=== PATIENT | female | born 1995 | race American Indian/Alaskan Native ===

== ENCOUNTER 2022-02-16 14:07 | Emergency (ER) | payer SELFPAY ==
--- NOTE | 2022-02-16 16:16 | Emergency Department Report ---
ED Eye Problem HPI - General Chief complaint: Eye Problems Stated complaint: EYE SWOLLEN Time Seen by Provider: 02/16/22 16:12 Source: patient Mode of arrival: Ambulatory Limitations: No Limitations - History of Present Illness Initial comments: Patient is a 26-year-old female that comes in with right eye swelling and pain. She has a stye on her right eye. No trauma. No contacts. Vision is unchanged. Patient is ambulatory, nontoxic [id number]. She has no chills or fever. She denies any headache. She is in her otherwise usual state of health. -: Gradual, days(s) Location: right eye Place: home If Injury: none Eye Symptoms: foreign body sensation Consistency: constant Associated Symptoms: none Treatments Prior to Arrival: none - Related Data Previous Rx's Medication Instructions Recorded Last Taken Type Amoxicillin [Trimox CAP] 500 mg PO BID #20 capsule 02/16/22 Unknown Rx Erythromycin [Erythromycin Ophth 0.5 inch OD Q4H #1 tube 02/16/22 Unknown Rx Oint] Allergies Allergy/AdvReac Type Severity Reaction Status Date / Time No Known Allergies Allergy Unverified 02/16/22 14:42 ED Review of Systems ROS: Stated complaint: EYE SWOLLEN Other details as noted in HPI Comment: All other systems reviewed and negative ED Past Medical Hx - Past Medical History Previous Medical History?: No - Surgical History Past Surgical History?: No - Family History Family history: no significant - Social History Smoking Status: Never Smoker Substance Use Type: Alcohol - Medications Home Medications: Home Medications Medication Instructions Recorded Confirmed Last Taken Type Amoxicillin [Trimox CAP] 500 mg PO BID #20 capsule 02/16/22 Unknown Rx Erythromycin [Erythromycin Ophth 0.5 inch OD Q4H #1 tube 02/16/22 Unknown Rx Oint] ED Physical Exam - General Limitations: No Limitations General appearance: alert, in no apparent distress - Head Head exam: Present: atraumatic, normocephalic - Eye Eye exam: Present: normal appearance, PERRL, EOMI - Expanded Eye Exam Expanded Eyelids: Stye: Right, Erythema: Right, Swelling: Right Pupils: Regular, Round: Bilateral - ENT ENT exam: Present: mucous membranes moist - Neck Neck exam: Present: normal inspection - Respiratory Respiratory exam: Present: normal lung sounds bilaterally. Absent: respiratory distress - Cardiovascular Cardiovascular Exam: Present: regular rate, normal rhythm. Absent: systolic murmur, diastolic murmur, rubs, gallop - GI/Abdominal GI/Abdominal exam: Present: soft, normal bowel sounds - Extremities Exam Extremities exam: Present: normal inspection - Back Exam Back exam: Present: normal inspection - Neurological Exam Neurological exam: Present: alert, oriented X3 - Psychiatric Psychiatric exam: Present: normal affect, normal mood - Skin Skin exam: Present: warm, dry, intact, normal color. Absent: rash ED Course Vital Signs 02/16/22 14:40 Pulse Rate 90 Respiratory 16 Rate Blood Pressure 147/93 O2 Sat by Pulse 97 Oximetry ED Medical Decision Making - Medical Decision Making Vital Signs 02/16/22 14:40 Pulse Rate 90 Respiratory 16 Rate Blood Pressure 147/93 O2 Sat by Pulse 97 Oximetry Patient has a stye of her right thigh involving the upper lid. There is quite a bit of soft tissue swelling of the right upper eyelid. There is also crusty drainage noted noted at the lateral corner of her right eye. For these reason I am putting her on amoxicillin. I have also given her erythromycin ointment. Patient discharged home with discharge plan of care including diet, activity, medications and follow-up. She verbalizes understanding of discharge plan of care. - Differential Diagnosis stye/hordeolum/trauma/conjunctivitis Critical care attestation.: If time is entered above; I have spent that time in minutes in the direct care of this critically ill patient, excluding procedure time. ED Disposition Clinical Impression: Stye Qualifiers: Laterality: right Eyelid: upper Qualified Code(s): H00.011 - Hordeolum externum right upper eyelid Disposition: 01 HOME / SELF CARE / HOMELESS Is pt being admited?: No Does the pt Need Aspirin: No Condition: Stable Instructions: Stye Additional Instructions: Medications as ordered today. Warm compresses will help with the discomfort Motrin or Tylenol for pain These can take a while to go away so continue to take the medicines until they are gone. I have given you referral to primary care should this persist. See below. Prescriptions: Erythromycin [Erythromycin Ophth Oint] 0.5 inch OD Q4H #1 tube Amoxicillin [Trimox CAP] 500 mg PO BID #20 capsule Referrals: J LUIS COURTNEY MD [Staff Physician] - 3-5 Days Time of Disposition: 16:15
[2022-02-16 16:43] VITALS: BP 130/78
== END 2022-02-16 16:43 | disposition home or self-care (01) ==
LOC: ED 14:07
DX: H00.011 Hordeolum externum right upper eyelid (principal); Z72.89 Other problems related to lifestyle; Z79.899 Other long term (current) drug therapy
CPT/HCPCS: 99282